=== PATIENT | female | born 2000 | race Caucasian/White ===

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

== ENCOUNTER 2021-06-01 19:41 | Emergency (ER) | payer OTHER ==
[2021-06-01 20:45] LABS: BASOPHIL 0.4 % (0-2); EOSINOPHIL 0.3 % (0-5); HCT 41.4 % (37.0-47.0); HGB 13.6 g/dl (12.5-16.0); LYMPHOCYTE 32.4 % (15-48); MCH 31.6 pg (25.0-31.0); MCHC 32.9 g/dL (32.0-36.0); MCV 96.3 fL (78.0-100.0); MPV 10.6 fL (6.0-9.5); NEUTROPHIL 59.5 % (41-80); NRBC 0; PLT 230 K/uL (150-400); RDW 12.4 % (11.5-14.0); WBC 7.1 K/uL (4.0-10.5)
[2021-06-01 20:58] LABS: BUN/CREAT RATIO (CALC) 11.5 RATIO; CREATININE 0.78 mg/dL (0.51-0.95); POTASSIUM 3.7 mmol/L (3.5-5.1)
[2021-06-01 22:26] LABS: BILIRUBIN NEGATIVE (NEGATIVE); BLOOD 3+ Ery/uL (NEGATIVE); COLOR YELLOW (YELLOW); GLUCOSE (U) NORMAL (NORMAL); LEUKOCYTES NEGATIVE Leu/uL (NEGATIVE); NITRITE NEGATIVE (NEGATIVE); PROTEIN TRACE (LOW) mg/dL (NEGATIVE); pH 7.5 (5.0-9.0)
[2021-06-01 22:32] LABS: CLARITY CLOUDY (CLEAR)
[2021-06-01 22:34] LABS: AMORPHOUS PHOSPHATE CRYSTALS LARGE; BACTERIA TRACE; URINARY RBC 20-50; URINARY WBC RARE
== END 2021-06-01 22:40 | disposition home or self-care (01) ==
LOC: FER 19:41
PROVIDERS: Nurse Practitioner Family
DX: N94.6 Dysmenorrhea, unspecified (principal); F17.290 Nicotine dependence, other tobacco product, uncomplicated
CPT/HCPCS: 36415; 80048; 81001; 84702; 85025; 86900; 86901; 99284